=== PATIENT | male | born 1960 | race Caucasian/White ===

== ENCOUNTER 2025-07-06 06:18 | Inpatient (IN) | payer MEDICARE, OTHER ==
[~2025-07-06] VITALS: Ht 165.1 cm; Wt 88.5 kg
[2025-07-06] VITALS (11 sets, daily range): BP systolic 120–178; BP diastolic 89–105; TEMP 98–98.1; O2SAT 93–98
[2025-07-06] MEDS ORDERED: FENTANYL PF 250MCG/5ML AMPUL ONE (06:57)
[2025-07-06] MEDS ORDERED: SUCCINYLCHOLINE CHLORIDE 20 MG/ML VIAL ONE (06:58)
[2025-07-06] MEDS ORDERED: ROCURONIUM BROMIDE 50 MG/5 ML ONE (06:58)
[2025-07-06] MEDS ORDERED: MIDAZOLAM HCL 2 MG/2ML VIAL ONE (06:59)
[2025-07-06] MEDS ORDERED: LIDOCAINE 2%-EPI 1:100,000 30 ML VIAL ONE (07:03)
[2025-07-06] MEDS ORDERED: dexaMETHasone SOD PHOSPHATE 1 ML ONE (07:03)
[2025-07-06] MEDS ORDERED: VANCOMYCIN 1 GM VIAL ONE (07:03)
[2025-07-06] MEDS ORDERED: GENTAMICIN 80 MG/2 ML VIAL ONE (07:56)
[2025-07-06] MEDS ORDERED: POLYMYXIN B SULFATE 500,000 UNITS ONE (07:56)
[2025-07-06] MEDS ORDERED: BUPIVACAINE 0.5 % PF 150 MG/30 ML VIAL ONE (07:56)
[2025-07-06] MEDS ORDERED: CEFAZOLIN 1 GM ONE (07:56)
[2025-07-06] MEDS: BLOOD SUGAR DIAGNOSTIC 1 EACH STRIP VI ONE (11:00)
[2025-07-06] MEDS ORDERED: MEPERIDINE HCL/PF 50 MG/ML DISP.SYRIN IV PRN (11:00)
[2025-07-06] MEDS ORDERED: METOCLOPRAMIDE HCL 10 MG/2 ML VIAL IV PRN (11:00)
[2025-07-06] MEDS ORDERED: LABETALOL 20 MG/4 ML VIAL ONE (11:56)
[2025-07-06] MEDS ORDERED: ALBUTEROL FS 2.5 MG/0.5 ML VIAL.NEB ONE (12:14)
[2025-07-06] MEDS ORDERED: ALBUTEROL FS 2.5 MG/3 ML VIAL.NEB ONE (12:27)
[2025-07-06] MEDS ORDERED: FUROSEMIDE 20 MG/2 ML VIAL ONE (13:00)
[2025-07-06] MEDS ORDERED: OXYMETAZOLINE HCL NASAL SPRAY 30 ML BOTTLE NS ONE (13:03)
[2025-07-06] MEDS ORDERED: INSULIN REGULAR, HUMAN 100 UNIT/ML 10 ML VIAL ONE (13:16)
[2025-07-06] MEDS ORDERED: FUROSEMIDE 20 MG/2 ML VIAL IV SCH (13:30)
[2025-07-06] MEDS ORDERED: ACETAMINOPHEN 650 MG/20.3 ML UDC PO PRN (14:00)
[2025-07-06] MEDS ORDERED: ONDANSETRON HCL/PF 4 MG/2 ML VIAL IV PRN (14:00)
[2025-07-06] MEDS: PIPERACILLIN /TAZOBACTAM 3.375 G in IV D5W 50 ML IV SCH (15:28)
[2025-07-06] MEDS: FUROSEMIDE 40 MG/4 ML VIAL IV SCH (15:36)
[2025-07-06 15:51] LABS: ABG BASE EXCESS -9.8 mmol/L (-2.0-3.0); ABG OXYGEN SATURATION 90.9 % (94.0-98.0); ABG PCO2 52.1 mmHg (35.0-48.0); ABG PH 7.178 (7.350-7.450); ABG PO2 69.4 mmHg (83.0-108.0); ABG TOTAL HEMOGLOBIN 15.5 G/dL (13.5-17.5); FRACTIONATED INSPIRED OXYGEN 100.0 %; SITE, ABG RIGHT RADIAL
[2025-07-06 15:53] LABS: ABG BASE EXCESS -8.2 mmol/L (-2.0-3.0); ABG OXYGEN SATURATION 98.6 % (94.0-98.0); ABG PCO2 30.6 mmHg (35.0-48.0); ABG PH 7.339 (7.350-7.450); ABG PO2 132.6 mmHg (83.0-108.0); ABG TOTAL HEMOGLOBIN 15.6 G/dL (13.5-17.5); FRACTIONATED INSPIRED OXYGEN 70.0 %; SET RATE, BG 16.0; SITE, ABG LEFT BRACHIAL
[2025-07-06] MEDS ORDERED: Z GUARD REMEDY 4 OZ OINT TP PRN (16:00)
[2025-07-06] MEDS ORDERED: ONDANSETRON HCL/PF 4 MG/2 ML VIAL IVP PRN (16:00)
[2025-07-06] MEDS ORDERED: IPRATROPIUM NEB FS 0.5 MG/2.5 ML AMPUL.NEB NEB PRN (16:00)
[2025-07-06] MEDS ORDERED: ACETAMINOPHEN 325 MG TABLET PO PRN (16:00)
[2025-07-06] MEDS ORDERED: MAGNESIUM HYDROXIDE 30 ML UDC PO PRN (16:00)
[2025-07-06] MEDS ORDERED: DEXTROSE 50%-WATER 50 ML DISP.SYRIN IV PRN (16:00)
[2025-07-06] MEDS ORDERED: IV NS 0.9% 1,000 ML IV PRN (16:00)
[2025-07-06] MEDS ORDERED: ALBUTEROL FS 2.5 MG/3 ML VIAL.NEB NEB PRN (16:00)
[2025-07-06] MEDS: HYDROCODONE/APAP 5/325MG TABLET PO PRN (16:46)
[2025-07-06] MEDS: HYDROMORPHONE 1 MG/1 ML DISP.SYRIN IV PRN (18:12)
[2025-07-06] MEDS: INSULIN REGULAR, HUMAN 100 UNIT/ML 3 ML VIAL SQ PRN (18:15)
[2025-07-06] MEDS: BLOOD SUGAR DIAGNOSTIC 1 EACH STRIP IN SCH (18:15)
[2025-07-06] MEDS ORDERED: INSU100I4 SQ (18:35)
[2025-07-06] MEDS ORDERED: MOUNJARO SQ (18:35)
[2025-07-06] MEDS ORDERED: METF-440 PO (18:35)
[2025-07-06] MEDS ORDERED: CARV6.252 PO (18:35)
[2025-07-06] MEDS ORDERED: VALS1TAB4 PO (18:35)
[2025-07-06] MEDS ORDERED: ALLO100T PO (18:35)
[2025-07-06] MEDS ORDERED: MONT10TA22 PO (18:35)
[2025-07-06] MEDS ORDERED: FOLI0.4T6 PO (18:35)
[2025-07-06] MEDS ORDERED: ASPI-1420 PO (18:35)
[2025-07-06] MEDS ORDERED: ATOR20TA PO (18:35)
[2025-07-06] MEDS ORDERED: CILO50TA PO (18:35)
[2025-07-06] MEDS ORDERED: INSU100I30 SQ (18:35)
[2025-07-06] MEDS: VANCOMYCIN 1 GM in IV D5W 250 ML IV SCH (19:42)
[2025-07-06] MEDS: ALBUTEROL HALF STRENGTH 1.25 MG/3 ML VIAL.NEB NEB SCH (19:43)
[2025-07-06] MEDS: IPRATROPIUM NEB FS 0.5 MG/2.5 ML AMPUL.NEB NEB SCH (19:44)
[2025-07-06] MEDS: P-EPHED SUL/LORATADINE(12H) 1 TAB.SR.12H PO SCH (21:30)
[2025-07-07] VITALS (31 sets, daily range): BP systolic 95–150; BP diastolic 62–99; TEMP 98.3–98.6; O2SAT 92–100
[2025-07-07] MEDS: INSULIN REGULAR, HUMAN 100 UNIT/ML 10 ML VIAL SQ ONE (00:18)
[2025-07-07] MEDS ORDERED: DEXTROSE 50%-WATER 50 ML DISP.SYRIN IV PRN ×2 (00:30→18:30)
[2025-07-07 04:26] LABS: CALCIUM, SERUM 9.2 mg/dL (8.5-10.1); CREATININE 3.1 mg/dL (0.6-1.3); SODIUM SERUM 142.0 mmol/L (136-145); UREA NITROGEN, BLOOD 52.0 mg/dL (7-18)
[2025-07-07 04:49] LABS: LDL 56.0 mg/dL (0-99)
[2025-07-07 04:52] LABS: PHOSPHORUS 4.3 mg/dL (2.5-4.9)
[2025-07-07 05:00] LABS: PLATELET COUNT (AUTO) 260 K/uL (150-450); RED BLOOD CELL COUNT(AUTO) 5.11 MIL/uL (4.5-6.0); RED CELL DISTRIBUTION WIDTH 15.0 % (11.5-15.0); WHITE BLOOD COUNT (AUTO) 10.9 K/uL (4.3-11.0)
[2025-07-07] MEDS: PANTOPRAZOLE 40 MG TABLET.DR PO SCH (07:59)
[2025-07-07] MEDS: BLOOD SUGAR DIAGNOSTIC 1 EACH STRIP VI SCH (08:00)
[2025-07-07] MEDS: INSULIN REGULAR, HUMAN 100 UNIT/ML 3 ML VIAL SQ PRN (08:01)
[2025-07-07 08:14] LABS: ABG BASE EXCESS -5.5 mmol/L (-2.0-3.0); ABG OXYGEN SATURATION 95.1 % (94.0-98.0); ABG PCO2 29.7 mmHg (35.0-48.0); ABG PH 7.397 (7.350-7.450); ABG PO2 76.9 mmHg (83.0-108.0); ABG TOTAL HEMOGLOBIN 15.1 G/dL (13.5-17.5); FLOW, BLOOD GAS 4.00 L/min (0.00-30.00); FRACTIONATED INSPIRED OXYGEN 36.0 %; SITE, ABG LEFT RADIAL
[2025-07-07] MEDS: MAG HYDROX/AL HYDROX/SIMETH 30 ML UDC PO PRN (08:51)
[2025-07-07] MEDS ORDERED: POTASSIUM CL. PREMIX PERIPHER. 50 ML IV SCH (09:30)
[2025-07-07] MEDS ORDERED: CILOSTAZOL 50 MG TABLET PO SCH (09:30)
[2025-07-07] MEDS ORDERED: NITROGLYCERIN 30 GM TUBE TP SCH (09:30)
[2025-07-07] MEDS: CILOSTAZOL 100 MG TABLET PO SCH (09:51)
[2025-07-07] MEDS: ALLOPURINOL 100 MG TABLET PO SCH (10:28)
[2025-07-07] MEDS: MONTELUKAST SODIUM (10MG) 10 MG TABLET PO SCH (10:29)
[2025-07-07] MEDS: ASPIRIN EC 81 MG TABLET.DR PO SCH (10:29)
[2025-07-07] MEDS: CARVEDILOL 6.25 MG TABLET PO SCH (10:29)
[2025-07-07] MEDS: NITROGLYCERIN PACKET 1 GM PACKET TD SCH (10:35)
[2025-07-07 15:35] LABS: CALCIUM, SERUM 9.0 mg/dL (8.5-10.1); CREATININE 2.6 mg/dL (0.6-1.3); SODIUM SERUM 135.0 mmol/L (136-145); UREA NITROGEN, BLOOD 55.0 mg/dL (7-18)
[2025-07-07] MEDS: *INSULIN REGULAR(HUMULIN R)HUM 100 UNIT/ML VIAL SQ PRN (17:42)
[2025-07-07] MEDS: IV NS 0.9% 1,000 ML IV PRN (18:39)
[2025-07-07] MEDS: ATORVASTATIN 10 MG TABLET PO SCH (21:18)
[2025-07-08] VITALS (18 sets, daily range): BP systolic 98–125; BP diastolic 60–88; TEMP 97.3–98.6; O2SAT 93–100
[2025-07-08] MEDS: BLOOD SUGAR DIAGNOSTIC 1 EACH STRIP IN SCH (00:06)
[2025-07-08 04:20] LABS: CREATINE KINASE, TOTAL 120 U/L (39-308)
[2025-07-08 04:23] LABS: ASPARTATE AMINOTRANSFERASE 16 U/L (15-37); CALCIUM, SERUM 8.7 mg/dL (8.5-10.1); CREATININE 2.3 mg/dL (0.6-1.3); PHOSPHORUS 4.6 mg/dL (2.5-4.9); SODIUM SERUM 138 mmol/L (136-145); TOTAL PROTEIN, SERUM 6.8 g/dL (6.4-8.2); UREA NITROGEN, BLOOD 56 mg/dL (7-18)
[2025-07-08] MEDS: INSULIN REGULAR, HUMAN 100 UNIT/ML 3 ML VIAL SQ PRN (06:04)
[2025-07-08 08:20] LABS: PLATELET COUNT (AUTO) 212 K/uL (150-450); RED BLOOD CELL COUNT(AUTO) 4.71 MIL/uL (4.5-6.0); RED CELL DISTRIBUTION WIDTH 14.9 % (11.5-15.0); WHITE BLOOD COUNT (AUTO) 11.0 K/uL (4.3-11.0)
[2025-07-08] MEDS: CARVEDILOL 6.25 MG TABLET PO SCH (09:00)
[2025-07-08] MEDS: IV NS 0.9% 1,000 ML BAG IV ONE (09:55)
[2025-07-08] MEDS: P-EPHED SUL/LORATADINE(12H) 1 TAB.SR.12H PO SCH (09:55)
[2025-07-08] MEDS: POLYETHYLENE GLYCOL 3350 17 GM POWD.PACK PO PRN (10:57)
[2025-07-08] MEDS ORDERED: BISACODYL SUPP (10 MG) 10 MG/SUPP.RECT SUPP.RECT RC PRN (11:00)
[2025-07-08 15:26] LABS: ABG BASE EXCESS -1.0 mmol/L (-2.0-3.0); ABG OXYGEN SATURATION 93.1 % (94.0-98.0); ABG PCO2 31.4 mmHg (35.0-48.0); ABG PH 7.461 (7.350-7.450); ABG PO2 66.9 mmHg (83.0-108.0); ABG TOTAL HEMOGLOBIN 13.9 G/dL (13.5-17.5); FLOW, BLOOD GAS 2.00 L/min (0.00-30.00); FRACTIONATED INSPIRED OXYGEN 28.0 %; SITE, ABG RIGHT RADIAL
[2025-07-08] MEDS: INSULIN GLARGINE 100 UNIT/ML SQ SCH (16:01)
[2025-07-08] MEDS: [UNRECOGNIZED DRUG - OTHER] SQ SCH (16:02)
[2025-07-09] VITALS (10 sets, daily range): BP systolic 105–117; BP diastolic 6–79; TEMP 97.7–98.4; O2SAT 95–100
[2025-07-09 07:44] LABS: PLATELET COUNT (AUTO) 215 K/uL (150-450); RED BLOOD CELL COUNT(AUTO) 4.29 MIL/uL (4.5-6.0); RED CELL DISTRIBUTION WIDTH 14.1 % (11.5-15.0); WHITE BLOOD COUNT (AUTO) 7.7 K/uL (4.3-11.0)
[2025-07-09 08:06] LABS: ASPARTATE AMINOTRANSFERASE 13.0 U/L (15-37); CALCIUM, SERUM 8.6 mg/dL (8.5-10.1); CREATININE 1.6 mg/dL (0.6-1.3); PHOSPHORUS 3.1 mg/dL (2.5-4.9); SODIUM SERUM 138.0 mmol/L (136-145); TOTAL PROTEIN, SERUM 6.1 g/dL (6.4-8.2); UREA NITROGEN, BLOOD 41.0 mg/dL (7-18)
[2025-07-09 08:08] LABS: PTH, INTACT 64 pg/mL (15-65)
== END 2025-07-09 16:11 | disposition home or self-care (01) | DRG 140 ==
LOC: DS 06:18 → ICU 13:53 → TELE1 07-08 04:20
PROVIDERS: ADMIT Nurse Practitioner Acute Care; ATTEND Nurse Practitioner Acute Care
PROC: 0NUR07Z Supplement Maxilla with Autologous Tissue Substitute, Open Approach (ICD-10-PCS; 2025-07-06)
PROC: 0N5R0ZZ Destruction of Maxilla, Open Approach (ICD-10-PCS; 2025-07-06)
PROC: 09UR07Z Supplement Left Maxillary Sinus with Autologous Tissue Substitute, Open Approach (ICD-10-PCS; 2025-07-06)
PROC: 09UQ07Z Supplement Right Maxillary Sinus with Autologous Tissue Substitute, Open Approach (ICD-10-PCS; 2025-07-06)
PROC: 0NSR04Z Reposition Maxilla with Internal Fixation Device, Open Approach (ICD-10-PCS; principal; 2025-07-06 07:30)
DX: S02.40DB Maxillary fracture, left side, initial encounter for open fracture (principal); I21.A1 Myocardial infarction type 2; J69.0 Pneumonitis due to inhalation of food and vomit; N17.0 Acute kidney failure with tubular necrosis; J95.821 Acute postprocedural respiratory failure; I13.0 Hypertensive heart and chronic kidney disease with heart failure and stage 1 through stage 4 chronic kidney disease, or unspecified chronic kidney disease; N13.30 Unspecified hydronephrosis; S02.40CB Maxillary fracture, right side, initial encounter for open fracture; X58.XXXA Exposure to other specified factors, initial encounter; Y93.9 Activity, unspecified; Y92.009 Unspecified place in unspecified non-institutional (private) residence as the place of occurrence of the external cause; M27.2 Inflammatory conditions of jaws; E11.22 Type 2 diabetes mellitus with diabetic chronic kidney disease; E66.9 Obesity, unspecified; E78.5 Hyperlipidemia, unspecified; G47.33 Obstructive sleep apnea (adult) (pediatric); I50.9 Heart failure, unspecified; J44.9 Chronic obstructive pulmonary disease, unspecified; K59.00 Constipation, unspecified; N18.30 Chronic kidney disease, stage 3 unspecified; Z68.32 Body mass index [BMI] 32.0-32.9, adult; E11.65 Type 2 diabetes mellitus with hyperglycemia; E83.89 Other disorders of mineral metabolism; R33.9 Retention of urine, unspecified; D16.5 Benign neoplasm of lower jaw bone; J32.0 Chronic maxillary sinusitis; X58.XXXD Exposure to other specified factors, subsequent encounter; M84.9 Disorder of continuity of bone, unspecified; K13.79 Other lesions of oral mucosa; M85.68 Other cyst of bone, other site; Y83.8 Other surgical procedures as the cause of abnormal reaction of the patient, or of later complication, without mention of misadventure at the time of the procedure; Y92.234 Operating room of hospital as the place of occurrence of the external cause
CPT/HCPCS: 36415; 36600; 71045-TC; 76770-TC; 80048-TC; 80053-TC; 80061-TC; 82550-TC; 82803-TC; 82962-TC; 83735-TC; 83970; 84100-TC; 84155; 84165; 84484-TC; 85025-TC; 88305-TC; 88311-TC; 93307-TC; 94799-TC; A4223; A4338; C1713; G0378; J0330; J0690; J1100; J1171; J1580; J1815; J1938; J2250; J2405; J2543; J2704; J2919; J3010; J3373; J3490; J7030; J7040; J7050; J7060